=== PATIENT | female | born 1960 | race Caucasian/White ===

== ENCOUNTER → 2016-07-04 | Outpatient (CLI) | payer BC ==
[~2016-07-04] MED LIST: ADVIL200 MG PO; AMARYL 2MG TABLE2 MG; BENICAR20 MG PO; CARVEDILOL 1212.5 MG PO; DEXILANT60 MG; ELAVIL GENERIC25 MG; FARXIGA10 MG PO; JANUVIA100 MG PO; MONTELUKAST SOD10 MG PO; OMEPRAZOLE40 MG PO; ROPINIROLE HYDRO2 MG PO; VERAPAMIL HYDR300 MG PO; VERAPAMIL240 MG; XYZAL5 MG
[2016-07-04 12:44] LABS: BUN 14 mg/dL (7-18)
[2016-07-04 12:45] LABS: GFR (ESTIMATED) 129 ML/MIN (59-)
== END ==
LOC: LAB 10:17
PROVIDERS: Internal Medicine Cardiovascular Disease
DX: I25.10 Atherosclerotic heart disease of native coronary artery without angina pectoris (principal); E78.5 Hyperlipidemia, unspecified

== ENCOUNTER → 2017-03-03 | Outpatient (CLI) | payer BC ==
--- NOTE | 2017-03-06 16:52 | RADIOLOGY REPORT PS360 ---
DIG MAMM-SCREEN VESNA W/CAD ORDERING PHYSICIAN : Mj Louie MD PATIENT AGE: 56 years GENDER: Female COMPARISON: January 2016 mammogram, February 2015, January 2014 and 2012. HISTORY: No hormones. No new complaints. Noncontributory family history. Previous needle biopsy right breast. This will TECHNIQUE: Std CC & MLO images were obtained. R2 CAD reviewed. FINDINGS: Mild to moderate breast density. Minimal residual fibroglandular elements most evident towards upper-outer quadrant left breast slightly more so than right. These are again noted with no significant new features Minimal nodularity seen bilaterally in 2016 is similar to today's study with no suspicious findings. RIGHT BREAST: No significant new findings. LEFT BREAST: Minimal nodularity superior left breast is similar to previous studies 2012 with no new findings. Follow-up in one year adequate IMPRESSION: No significant change. Bilateral follow-up one year recommended BI-RADS CATEGORY: 2_Benign RECOMMENDED FOLLOWUP: 12M 12 MONTH FOLLOW-UP (A letter has been sent to the patient regarding results of the study.)
== END ==
LOC: RAD 16:50
DX: Z12.31 Encounter for screening mammogram for malignant neoplasm of breast (principal)
CPT/HCPCS: G0202